=== PATIENT | male | born 1990 | race Caucasian/White ===

== ENCOUNTER 2021-04-07 14:03 | Emergency (ER) | payer OTHER ==
[~2021-04-07] VITALS: Ht 193 cm; Wt 97.5 kg
[2021-04-07 17:25] LABS: URINE BILIRUBIN NEGATIVE (Negative); URINE BLOOD NEGATIVE (Negative); URINE CLARITY CLEAR; URINE COLOR YELLOW; URINE GLUCOSE-RANDOM NEGATIVE (Negative); URINE KETONES NEGATIVE (Negative); URINE LEUKOCYTES-REFLEX NEGATIVE (Negative); URINE NITRITE-REFLEX NEGATIVE (Negative); URINE PROTEIN NEGATIVE (Negative); URINE SPECIFIC GRAVITY 1.025 (1.005-1.030); URINE UROBILINOGEN 0.2 E.U./dl (0.2-1.0)
[2021-04-07] MEDS ORDERED: FLEXERIL PO (18:28)
[2021-04-07] MEDS ORDERED: NAPROSYN500 MG PO (18:28)
[2021-04-07] MEDS ORDERED: MEDROLDOSEPACK PO (18:28)
[2021-04-07] MEDS ORDERED: TRAMADOL 50 MG50 MG PO (18:41)
[2021-04-07 18:57] VITALS: BP 139/91
== END 2021-04-07 18:58 | disposition home or self-care (01) ==
LOC: M.ERS 14:03
PROVIDERS: Nurse Practitioner Family
DX: M54.41 Lumbago with sciatica, right side (principal); Z90.49 Acquired absence of other specified parts of digestive tract